=== PATIENT | female | born 1960 | race Caucasian/White ===

== ENCOUNTER 2022-08-09 09:18 | Inpatient (IN) | payer OTHER ==
[2022-08-09 09:33] VITALS: BMI 32.8
[2022-08-09] MEDS ORDERED: SODIUM CHLORIDE 1,000 ML IV ONE (11:35)
[2022-08-09 12:38] LABS: BASO % 0.9 % (0-2.0); EOS % 1.2 % (0-4.5); HEMATOCRIT 42.1 % (32.4-45.2); HEMOGLOBIN 14.1 GM/dL (10.7-15.3); LYMPH % 26.5 % (8-40); MCH 30.7 pg (25.7-33.7); MCHC 33.5 g/dl (32.0-36.0); MEAN CELL VOLUME 91.7 fl (80-96); MEAN PLT VOLUME 9.6 fl (7.5-11.1); MONO % 7.1 % (3.8-10.2); NEUT % 64.3 % (42.8-82.8); PLATELET COUNT 235 10^3/uL (134-434); RDW 14.5 % (11.6-15.6); WHITE BLOOD COUNT 6.8 K/mm3 (4.0-10.0)
[2022-08-09 13:03] LABS: ALBUMIN 3.3 g/dl (3.4-5.0); BLOOD UREA NITROGEN 12.3 mg/dL (7-18)
[2022-08-09 13:06] LABS: CREATININE 0.6 mg/dL (0.55-1.3)
[2022-08-09 13:08] LABS: BILIRUBIN,TOTAL 0.4 mg/dL (0.2-1); TOT PROT 6.5 g/dl (6.4-8.2)
[2022-08-09] MEDS ORDERED: ASPIRIN 81 MG CHEWABLE TABLETS PO ONE (14:12)
[2022-08-09] MEDS ORDERED: ASPIRIN 81 MG CHEWABLE TABLETS ONE (15:18)
[2022-08-09] MEDS ORDERED: ATORVASTATIN CA 80 MG TABLET (FP) PO ONE (20:54)
[2022-08-09] MEDS: ENOXAPARIN NA (PORCINE) 40 MG/0.4 ML DISP.SYRIN SQ SCH (22:20)
[2022-08-10 09:05] LABS: BASO % 0.5 % (0-2.0); EOS % 2.2 % (0-4.5); HEMATOCRIT 42.9 % (32.4-45.2); HEMOGLOBIN 14.1 GM/dL (10.7-15.3); LYMPH % 27.1 % (8-40); MCH 30.2 pg (25.7-33.7); MCHC 32.9 g/dl (32.0-36.0); MEAN CELL VOLUME 91.9 fl (80-96); MEAN PLT VOLUME 9.6 fl (7.5-11.1); MONO % 6.9 % (3.8-10.2); NEUT % 63.3 % (42.8-82.8); PLATELET COUNT 248 10^3/uL (134-434); RBC 4.67 M/mm3 (3.60-5.2); RDW 14.2 % (11.6-15.6); WHITE BLOOD COUNT 6.4 K/mm3 (4.0-10.0)
[2022-08-10] MEDS: ASPIRIN COATED 81 MG TABLET.EC PO SCH (09:17)
[2022-08-10] MEDS: ENOXAPARIN NA (PORCINE) 40 MG/0.4 ML DISP.SYRIN SQ SCH (09:17)
[2022-08-10 09:31] LABS: ALBUMIN 3.2 g/dl (3.4-5.0)
[2022-08-10 09:32] LABS: BLOOD UREA NITROGEN 11.5 mg/dL (7-18); MAGNESIUM 2.1 mg/dL (1.8-2.4)
[2022-08-10 09:35] LABS: CALCIUM 8.7 mg/dL (8.5-10.1); CREATININE 0.6 mg/dL (0.55-1.3)
[2022-08-10 09:36] LABS: BILIRUBIN,TOTAL 0.8 mg/dL (0.2-1); TOT PROT 6.4 g/dl (6.4-8.2)
[2022-08-10] MEDS ORDERED: FLU VACC QS2022-23(6MOS UP)/PF 60 MCG/0.5 ML SYRINGE IM ONE (10:00)
[2022-08-10] MEDS: INSULIN SLIDING SCALE (NOVOLOG) 1 VIAL SQ SCH ×3 (11:36→22:30)
[2022-08-10 20:03] LABS: COCAINE, UR NEGATIVE (NEGATIVE); OPIATES, URI NEGATIVE (NEGATIVE); PHENCYCLIDINE,URINE NEGATIVE (NEGATIVE); URINE AMPHETAMINES NEGATIVE (NEGATIVE); URINE BARBITURATES NEGATIVE (NEGATIVE); URINE BENZODIAZEPINES NEGATIVE (NEGATIVE)
[2022-08-10 20:14] LABS: METHADONE, UR NEGATIVE (NEGATIVE)
[2022-08-10] MEDS ORDERED: ATORVASTATIN CA 40 MG TABLET (FP) PO SCH (22:00)
[2022-08-11] MEDS: INSULIN SLIDING SCALE (NOVOLOG) 1 VIAL SQ SCH ×2 (06:43→15:17)
[2022-08-11 07:32] LABS: BASO % 0.6 % (0-2.0); EOS % 2.5 % (0-4.5); HEMATOCRIT 42.8 % (32.4-45.2); HEMOGLOBIN 14.2 GM/dL (10.7-15.3); LYMPH % 23.9 % (8-40); MCH 30.3 pg (25.7-33.7); MCHC 33.1 g/dl (32.0-36.0); MEAN CELL VOLUME 91.5 fl (80-96); MEAN PLT VOLUME 8.9 fl (7.5-11.1); MONO % 8.8 % (3.8-10.2); NEUT % 64.2 % (42.8-82.8); PLATELET COUNT 233 10^3/uL (134-434); RBC 4.67 M/mm3 (3.60-5.2); RDW 14.3 % (11.6-15.6); WHITE BLOOD COUNT 6.1 K/mm3 (4.0-10.0)
[2022-08-11 07:51] LABS: ALBUMIN 3.1 g/dl (3.4-5.0); CALCIUM 8.4 mg/dL (8.5-10.1)
[2022-08-11 07:55] LABS: CREATININE 0.5 mg/dL (0.55-1.3)
[2022-08-11 07:56] LABS: BILIRUBIN,TOTAL 0.7 mg/dL (0.2-1); TOT PROT 6.1 g/dl (6.4-8.2)
[2022-08-11] MEDS ORDERED: amLODIPine BESYLATE 5 MG TABLET (FP) PO SCH (10:00)
[2022-08-11] MEDS ORDERED: CLOPIDOGREL BISULFATE 75 MG TABLET (FP) PO SCH (10:00)
[2022-08-11] MEDS: ASPIRIN COATED 81 MG TABLET.EC PO SCH (11:26)
[2022-08-11 14:45] VITALS: BP 114/68; PULSE 71; RESP 19; TEMP 98.4
== END 2022-08-11 17:50 | disposition home or self-care (01) | DRG 45 ==
LOC: JER 09:18 → JERBED 14:09 → J4S 21:04 → OBSVTOIN 21:33
PROVIDERS: ADMIT Internal Medicine; ATTEND Nurse Practitioner Acute Care
DX: I63.542 Cerebral infarction due to unspecified occlusion or stenosis of left cerebellar artery (principal); I10 Essential (primary) hypertension; R42 Dizziness and giddiness; R29.700 NIHSS score 0; E66.9 Obesity, unspecified; Z68.32 Body mass index [BMI] 32.0-32.9, adult; Z71.3 Dietary counseling and surveillance; E11.9 Type 2 diabetes mellitus without complications
CPT/HCPCS: 36415; 70450-TC; 70544-TC; 70553-TC; 71046-TC-FY; 80053; 80061; 80307; 82136; 82962; 83036; 83735; 83918; 84100; 84436; 84443; 85025; 93005; 93010; 93306-TC; 93880-TC; 97116-GP; 97161-GP; 99285-25; A9579; C9803-CS; G0008; G0378; Q2036; U0003; U0005